=== PATIENT | female | born 1990 | race Two or more races ===

== ENCOUNTER → 2017-11-17 | Outpatient (CLI) | payer OTHER | LOC: M RAD 17:38 | DX: M79.605 Pain in left leg (principal); I82.412 Acute embolism and thrombosis of left femoral vein; D68.51 Activated protein C resistance | CPT/HCPCS: 93971 ==

== ENCOUNTER → 2017-11-27 | Outpatient (REF) | payer OTHER ==
[2017-11-27 18:00] LABS: PROTHROMBIN TIME 26.2 SECONDS (12.4-14.5)
== END ==
LOC: M SFHCLERA 13:27
DX: Z79.01 Long term (current) use of anticoagulants (principal)

== ENCOUNTER → 2017-12-11 | Outpatient (REF) | payer OTHER ==
[2017-12-11 17:14] LABS: INR 1.13; PROTHROMBIN TIME 14.7 SECONDS (12.4-14.5)
== END ==
LOC: M SFHCLERA 13:57
DX: Z79.01 Long term (current) use of anticoagulants (principal)

== ENCOUNTER → 2017-12-20 | Outpatient (REF) | payer OTHER ==
[2017-12-20 17:58] LABS: INR 1.08; PROTHROMBIN TIME 14.2 SECONDS (12.4-14.5)
== END ==
LOC: M SFHCLERA 12:58
DX: Z79.01 Long term (current) use of anticoagulants (principal)

== ENCOUNTER → 2018-02-02 | Outpatient (CLI) | payer OTHER | LOC: M RAD 11:01 | DX: M79.605 Pain in left leg (principal); R22.42 Localized swelling, mass and lump, left lower limb; I87.002 Postthrombotic syndrome without complications of left lower extremity | CPT/HCPCS: 93971 ==

== ENCOUNTER 2018-03-06 13:28 | Outpatient (RCR) | payer OTHER | END 2018-04-05 | LOC: M PT 13:28 | DX: Z51.89 Encounter for other specified aftercare (principal); I89.0 Lymphedema, not elsewhere classified ==

== ENCOUNTER → 2018-08-08 | Outpatient (CLI) | payer OTHER | LOC: M RAD 12:11 | DX: I82.512 Chronic embolism and thrombosis of left femoral vein (principal) | CPT/HCPCS: 93971 ==

== ENCOUNTER → 2019-01-24 | Outpatient (CLI) | payer OTHER ==
--- NOTE | 2019-01-25 16:10 | REP ---
Clinical: Left renal vein thrombus. Technique: Real time marie scale and color Doppler evaluation of the left lower extremity venous system using linear high frequency transducer. Comparison: 08/08/2018. Findings: Residual chronic nonocclusive thrombus from the common femoral vein to the distal superficial femoral vein/popliteal vein is appreciated without evidence for complete occlusion. 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 Electronically Signed by Topher Pitt MD 01/25/2019 04:01 P
== END ==
LOC: M RAD 11:07
PROVIDERS: ATTEND Surgery Vascular Surgery
DX: I82.512 Chronic embolism and thrombosis of left femoral vein (principal)